=== PATIENT | male | born 1975 | race Two or more races ===

== ENCOUNTER 2020-11-24 21:58 | Inpatient (IN) | payer OTHER ==
[~2020-11-24] VITALS: Ht 177.8 cm; Wt 120.2 kg
--- NOTE | 2020-11-24 23:21 | ED.ADGEN ---
Past Medical History Past Surgical History: No Surgical History General Adult EDM: Chief Complaint: BLOODY STOOL HPI: HPI: Patient is a 45 year old male coming in for blood in his stools for the past 3 to 4 days. Patient states he has had a few episodes in the past over the last 1 to 2 days. Patient states he has some rectal discomfort with bowel movements. Says the blood is streaked on bowel movements. Denies any abdominal pain. Denies any diarrhea. Did not take any blood thinners. No surgical or medical Review of Systems: Review of Systems: All other systems within normal limits except for as noted in the HPI Current Medications: Current Medications Medications (Trade) Dose Ordered Sig/Jennifer Start Time Stop Time Status Last Admin Dose Admin Acetaminophen (Tylenol) 650 mg PRN Q4HRS PRN 11/25/20 00:00 11/25/20 23:59 Fentanyl Citrate (Fentanyl 2ml Vial) 50 mcg PRN Q1HR PRN 11/25/20 00:00 11/25/20 23:59 Hydrocortisone Acetate (Anucort-Hc) 25 mg 1X PRN 11/24/20 23:30 Info (CONTRAST GIVEN -- Rx MONITORING) 1 each PRN DAILY PRN 11/25/20 00:30 11/27/20 00:29 Iohexol (Omnipaque 350 Mg/ml) 100 ml 1X ONCE 11/25/20 00:30 11/25/20 00:31 DC 11/25/20 00:50 100 ML Ondansetron HCl (Zofran) 4 mg PRN Q8HRS PRN 11/25/20 00:00 11/25/20 23:59 Sodium Chloride 1,000 ml @ 100 mls/hr Q10H 11/25/20 00:00 11/25/20 23:59 Allergies: Allergies: Allergies Coded Allergies Type Severity Reaction Last Updated Verified No Known Drug Allergies 11/24/20 No Physical Exam: PE: Constitutional: Well developed, well nourished, no acute distress, non-toxic appearance. [] HENT: Normocephalic, atraumatic, bilateral external ears normal, nose normal. [] Eyes: PERRLA, conjunctiva normal, no discharge. [] Neck: No rigidity, supple, no stridor. [] Cardiovascular: Regular rate and rhythm, brisk cap refill [] Lungs & Thorax: Non labored symmetric respirations, no tachypnea or respiratory distress [] Abdomen: Soft, nondistended. Rectal exam:, Large hemorrhoid with friable area on the left anus. No fissures or active bleeding, hemorrhoid not thrombosed Skin: Warm, dry, no erythema, no rash. [] Back: Unremarkable Extremities: No deformities, range of motion grossly intact, no lower extremity edema [] Neurologic: Alert and oriented X 3, no focal deficits noted. [] Psychologic: Affect normal, judgement normal, mood normal. [] Current Patient Data: Labs: Laboratory Tests Test 11/24/20 23:16 11/24/20 23:37 Stool Occult Blood Positive (NEG) White Blood Count 8.2 x10^3/uL (4.0-11.0) Red Blood Count 3.31 x10^6/uL (4.30-5.70) L Hemoglobin 5.9 g/dL (13.0-17.5) *L Hematocrit 19.6 % (39.0-53.0) *L Mean Corpuscular Volume 59 fL (79-100) L Mean Corpuscular Hemoglobin 18 pg (25-35) L Mean Corpuscular Hemoglobin Concent 30 g/dL (31-37) L Red Cell Distribution Width 17.2 % (11.5-14.5) H Platelet Count 410 x10^3/uL (140-400) H Neutrophils (%) (Auto) 47 % (31-73) Lymphocytes (%) (Auto) 37 % (24-48) Monocytes (%) (Auto) 10 % (0-9) H Eosinophils (%) (Auto) 5 % (0-3) H Basophils (%) (Auto) 2 % (0-3) Neutrophils # (Auto) 3.9 x10^3/uL (1.8-7.7) Lymphocytes # (Auto) 3.0 x10^3/uL (1.0-4.8) Monocytes # (Auto) 0.8 x10^3/uL (0.0-1.1) Eosinophils # (Auto) 0.4 x10^3/uL (0.0-0.7) Basophils # (Auto) 0.1 x10^3/uL (0.0-0.2) Platelet Estimate Pending Sodium Level 141 mmol/L (136-145) Potassium Level 3.8 mmol/L (3.5-5.1) Chloride Level 107 mmol/L (98-107) Carbon Dioxide Level 25 mmol/L (21-32) Anion Gap 9 (6-14) Blood Urea Nitrogen 13 mg/dL (8-26) Creatinine 1.2 mg/dL (0.7-1.3) Estimated GFR (Cockcroft-Gault) 65.2 BUN/Creatinine Ratio 11 (6-20) Glucose Level 88 mg/dL (70-99) Calcium Level 8.4 mg/dL (8.5-10.1) L Total Bilirubin 0.8 mg/dL (0.2-1.0) Aspartate Amino Transferase (AST) 22 U/L (15-37) Alanine Aminotransferase (ALT) 25 U/L (16-63) Alkaline Phosphatase 84 U/L (46-116) Total Protein 7.2 g/dL (6.4-8.2) Albumin 3.4 g/dL (3.4-5.0) Albumin/Globulin Ratio 0.9 (1.0-1.7) L Lipase 180 U/L (73-393) Laboratory Tests 11/24/20 23:37 Laboratory Tests 11/24/20 23:37 Vital Signs: Vital Signs Date Time Temp Pulse Resp B/P (MAP) Pulse Ox O2 Delivery O2 Flow Rate FiO2 11/25/20 01:00 88 19 130/60 (83) 99 Room Air 11/24/20 22:56 98.7 98.7 EKG: EKG: [] Heart Score: C/O Chest Pain: No Risk Factors: Risk Factors: DM, Current or recent (<one month) smoker, HTN, HLP, family history of CAD, obesity. Risk Scores: Score 0 - 3: 2.5% MACE over next 6 weeks - Discharge Home Score 4 - 6: 20.3% MACE over next 6 weeks - Admit for Clinical Observation Score 7 - 10: 72.7% MACE over next 6 weeks - Early Invasive Strategies Radiology/Procedures: Radiology/Procedures: [facility] [address] [place] [address] IMAGING REPORT Signed PATIENT: ROSA AJ OACCOUNT: [id number] : 1975 LOCATION: ER AGE: 45 SEX: M EXAM STATUS: REG ER ORD. PHYSICIAN: MICHAEL MONTES MD REASON: lower GI bleeding, OMNI 350 100 IV PROCEDURE: CT ANGIOGRAPHY ABD AND PELVIS CTA ABDOMEN AND PELVIS WITHOUT IV CONTRAST History: Reason: lower GI bleeding, OMNI 350 100 IV / Spl. Instructions: / History: Technique: CT abdomen pelvis without and with contrast. With contrast arterial and delayed images were obtained.. Coronal and sagittal reconstructions were p erformed. Exposure: One or more of the following individualized dose reduction techniques were utilized for this examination: 1. Automated exposure control 2. Adjustment of the mA and/or kV according to patient size 3. Use of iterative reconstruction technique. Comparison: None Findings: Lower chest: No consolidation or pleural effusion. Abdomen and pelvis: The liver, spleen, adrenal glands, and pancreas are unremarkable. Contracted gallbladder. No biliary ductal dilatation. No renal calculus or hydronephrosis. Normal appearance of the urinary bladder. Colonic diverticulosis. Mild sigmoid colonic wall thickening with mild adjacent inflammatory changes. No evidence of contrast extravasation to suggest active hemorrhage. No pneumoperitoneum. No abscess. Normal appendix. No evidence of bowel obstruction. No pathologic lymphadenopathy. No ascites. Small fat-containing left inguinal hernia. Small fat-containing umbilical hernia. Bones: Grade 2 anterolisthesis L5 on S1 due to bilateral pars defects with advanced degenerative disc changes. Additional thoracolumbar spondylosis. Impression: 1. Colonic diverticulosis with focal sigmoid colonic wall thickening and mild adjacent inflammatory changes, may represent colitis or diverticulitis although malignancy is possible. Recommend follow-up and colonoscopy to further evaluate. Electronically signed by: Yifan Kamara DO (11/25/2020 1:38 AM) [facility] DICTATED and SIGNED BY: YIFAN KAMARA DO DATE: 11/25/20 [id number] [] Course & Med Decision Making: Course & Med Decision Making Pertinent Labs and Imaging studies reviewed. (See chart for details) Fecal occult negative with anemia. Patient consented to transfusion and admitted to hospitalist with GI consult. Vital signs remained stable emergency department. [] Dragon Disclaimer: Dragon Disclaimer: This electronic medical record was generated, in whole or in part, using a voice recognition dictation system. Departure Departure Impression: Primary Impression: Anemia Additional Impression: Lower GI bleeding Disposition: ADMITTED INPATIENT Admitting Physician: KATIE Condition: STABLE Referrals: NO PCP (PCP) Problem Qualifiers MICHAEL MONTES MD Nov 24, 2020 23:21
[2020-11-24] MEDS ORDERED: HYDROCORTISONE ACETATE 25 MG SUPP.RECT PR PRN (23:30)
[2020-11-24 23:46] LABS: BASO # 0.1 x10^3/uL (0.0-0.2); BASO % 2 % (0-3); EOS # 0.4 x10^3/uL (0.0-0.7); EOS % 5 % (0-3); LYMPH % 37 % (24-48); MEAN CORPUSCULAR HEMOGLOBIN 18 pg (25-35); MEAN CORPUSCULAR HGB CONC 30 g/dL (31-37); MEAN CORPUSCULAR VOLUME 59 fL (79-100); MONO # 0.8 x10^3/uL (0.0-1.1); MONO % 10 % (0-9); NEUT # 3.9 x10^3/uL (1.8-7.7); NEUT % 47 % (31-73); PLATELET COUNT 410 x10^3/uL (140-400); RED BLOOD COUNT 3.31 x10^6/uL (4.30-5.70); RED CELL DISTRIBUTION WIDTH 17.2 % (11.5-14.5); WHITE BLOOD COUNT 8.2 x10^3/uL (4.0-11.0)
[2020-11-24 23:50] LABS: HEMATOCRIT 19.6 % (39.0-53.0); HEMOGLOBIN 5.9 g/dL (13.0-17.5)
[2020-11-24 23:52] LABS: CALCIUM 8.4 mg/dL (8.5-10.1); CREATININE 1.2 mg/dL (0.7-1.3); GFR 65.2; POTASSIUM 3.8 mmol/L (3.5-5.1)
[2020-11-24 23:58] LABS: ALBUMIN 3.4 g/dL (3.4-5.0); ALBUMIN/GLOBULIN RATIO 0.9 (1.0-1.7); TOTAL BILIRUBIN 0.8 mg/dL (0.2-1.0); TOTAL PROTEIN 7.2 g/dL (6.4-8.2)
[2020-11-25] VITALS (11 sets, daily range): BP systolic 103–144; BP diastolic 53–76
[2020-11-25] MEDS ORDERED: ACETAMINOPHEN 325 MG TABLET. PO PRN
[2020-11-25] MEDS ORDERED: ONDANSETRON PF 4 MG/2 ML VIAL. IVP PRN
[2020-11-25] MEDS ORDERED: fentaNYL PF VIAL 100 MCG/2 ML VIAL IVP PRN
[2020-11-25] MEDS ORDERED: CONTRAST GIVEN. MC PRN (00:30)
[2020-11-25] MEDS ORDERED: IOHEXOL 350 MG/ML 100 ML VIAL. IV ONE (00:30)
[2020-11-25 01:16] LABS: FECAL OB PT POSITIVE (NEG)
--- NOTE | 2020-11-25 01:40 | RAD ---
CTA ABDOMEN AND PELVIS WITHOUT IV CONTRAST History: Reason: lower GI bleeding, OMNI 350 100 IV / Spl. Instructions: / History: Technique: CT abdomen pelvis without and with contrast. With contrast arterial and delayed images wer e obtained.. Coronal and sagittal reconstructions were performed. Exposure: One or more of the following individualized dose reduction techniques were utilized for thi s examination: 1. Automated exposure control 2. Adjustment of the mA and/or kV according to patient size 3. Use of iterative reconstruction technique. Comparison: None Findings: Lower chest: No consolidation or pleural effusion. Abdomen and pelvis: The liver, spleen, adrenal glands, and pancreas are unremarkable. Contracted gall bladder. No biliary ductal dilatation. No renal calculus or hydronephrosis. Normal appearance of the urinary bladder. Colonic diverticulosis. Mild sigmoid colonic wall thickening with mild adjacent inflammatory changes. No evidence of contrast extravasation to suggest active hemorrhage. No pneumoperitoneum. No abscess. Normal appendix. No evidence of bowel obstruction. No pathologic lymphadenopathy. No ascites. Small f at-containing left inguinal hernia. Small fat-containing umbilical hernia. Bones: Grade 2 anterolisthesis L5 on S1 due to bilateral pars defects with advanced degenerative disc changes. Additional thoracolumbar spondylosis. Impression: 1. Colonic diverticulosis with focal sigmoid colonic wall thickening and mild adjacent inflammatory changes, may represent colitis or diverticulitis although malignancy is possible. Recommend follow-up and colonoscopy to further evaluate. Electronically signed by: Yifan Miles DO (11/25/2020 1:38 AM) [facility]
--- NOTE | 2020-11-25 02:00 | NUR ---
The patient, ROSA AJ, 45 y/o, M admitted by MEGHAN PUENTE MD, was given written information regarding hospital policies, unit procedures and contact persons. Valuables were checked and left with him.
[2020-11-25] MEDS: IV NORMAL SALINE 1000ML BAG 1,000 ML IV SCH ×2 (03:23→10:00)
[2020-11-25 04:29] LABS: PLT ESTIMATE INCREASED (ADEQUATE)
[2020-11-25 04:30] LABS: ANISOCYTOSIS SLIGHT; HYPOCHROMIA MARKED; MICROCYTOSIS MARKED; OVALOCYTES FEW; POLYCHROMASIA SLIGHT; TEAR DROP CELLS OCC
--- NOTE | 2020-11-25 07:28 | PDOC1 ---
History and Physical Date of Admission Date of Admission DATE: 11/25/20 TIME: 07:16 Identification/Chief Complaint Chief Complaint Blood in stool Source Source: Patient History of Present Illness History of Present Illness Mr Weaver is a 45 yo male w/ PMHx hypothyroidism coming in for blood in his stools for the past 3 days prior to arrival. He has had a few episodes in the past 2 days where brisk bright red blood appeared. Patient states he has some rectal discomfort with bowel movements. 2 days ago was pure blood, but over the past 24 hours prior to arrival blood is streaked in bowel movements. Denies any abdomi nal pain. Denies any diarrhea. Did not take any blood thinners. He has been off levothyroxine and has not seen a PCP in years because he felt fine. He came to the ED because of associated dizziness. Was orthostatic in ED. When he was 35 years old has similar symptoms resolved within 2 days and has never had a EGD or colonoscopy. No weight loss. Has had some constipation but does strain to have bowel movements and has been working on changing his diet recently. Up-to-date on COVID-19 vaccines WBC 8.2, Hb 5.9, platelets 410, NA 141, K3.8, BUN 13, CR 1.2, glucose 88, LFTs within normal limits albumin 3.4, occult blood positive. CT abdomen pelvis with diverticulosis with sigmoid wall thickening. 2 units PRBC ordered and admitted for further observation with GI consultation Past Medical History Endocrine: Hypothyroidism Past Surgical History Past Surgical History: No pertinent history Family History Family History: Diabetes, High Cholestrol, Hypertension Social History Smoke: No ALCOHOL: rare Drugs: None Current Problem List Problem List Problems Medical Problems: (1) Anemia Status: Acute (2) Lower GI bleeding Status: Acute Current Medications Current Medications Current Medications Hydrocortisone Acetate (Anucort-Hc) 25 mg 1X PRN AL RECTAL PAIN; Start at 23:30 Ondansetron HCl (Zofran) 4 mg PRN Q8HRS PRN IVP NAUSEA/VOMITING; Start 11/25/20 at 00:00; Stop 11/25/20 at 23:59 Fentanyl Citrate (Fentanyl 2ml Vial) 50 mcg PRN Q1HR PRN IVP PAIN; Start 11/25/20 at 00:00; Stop 11/25/20 at 23:59 Sodium Chloride 1,000 ml @ 100 mls/hr Q10H IV Last administered on 11/25/20at 03:23; Start 11/25/20 at 00:00; Stop 11/25/20 at 23:59 Acetaminophen (Tylenol) 650 mg PRN Q4HRS PRN PO FEVER > 100.3'F; Start 11/25/20 at 00:00; Stop 11/25/20 at 23:59 Iohexol (Omnipaque 350 Mg/ml) 100 ml 1X ONCE IV Last administered on 11/25/20at 00:50; Start 11/25/20 at 00:30; Stop 11/25/20 at 00:31; Status DC Info (CONTRAST GIVEN -- Rx MONITORING) 1 each PRN DAILY PRN MC SEE COMMENTS; Start 11/25/20 at 00:30; Stop 11/27/20 at 00:29 Allergies Allergies: Coded Allergies: No Known Drug Allergies (Unverified , 11/24/20) ROS General: YES: Fatigue, Malaise, Appetite; No: Chills, Night Sweats, Other PSYCHOLOGICAL ROS: No: Anxiety, Behavioral Disorder, Concentration difficultie, Decreased libido, Depression, Disorientation, Hallucinations, Hostility, Irritablity, Memory difficulties, Mood Swings, Obsessive thoughts, Physical abuse, Sexual abuse, Sleep disturbances, Suicidal ideation, Other Eyes: No Blurry vision, No Decreased vision, No Double vision, No Dry eyes, No Excessive tearing, No Eye Pain, No Itchy Eyes, No Loss of vision, No Photophobia, No Scotomata, No Uses contacts, No Uses glasses, No Other HEENT: No: Heacaches, Visual Changes, Hearing change, Nasal congestion, Nasal discharge, Oral lesions, Sinus pain, Sore Throat, Epistaxis, Sneezing, Snoring, Tinnitus, Vertigo, Vocal changes, Other ALLERGY AND IMMUNOLOGY: No: Hives, Insect Bite Sensitivity, Itchy/Watery Eyes, Nasal Congestion, Post Nasal Drip, Seasonal Allergies, Other Hematological and Lymphatic: No: Bleeding Problems, Blood Clots, Blood Transfusions, Brusing, Night Sweats, Pallor, Swollen Lymph Nodes, Other ENDOCRINE: No: Breast Changes, Galactorrhea, Hair Pattern Changes, Hot Flashes, Malaise/lethargy, Mood Swings, Palpitations, Polydipsia/polyuria, Skin Changes, Temperature Intolerance, Unexpected Weight Changes, Other Breast: No New/Changing Breast Lumps, No Nipple changes, No Nipple discharge, No Other Respiratory: No: Cough, Hemoptysis, Orthopnea, Pleuritic Pain, Shortness of breath, SOB with excertion, Sputum Changes, Stridor, Tachypnea, Wheezing, Other Cardiovascular: No Chest Pain, No Palpitations, No Orthopnea, No Paroxysmal Noc . Dyspnea, No Edema, No Lt Headedness, No Other Gastrointestinal: Yes Hematochezia; No Nausea, No Vomiting, No Abdominal Pain, No Diarrhea, No Constipation, No Melena, No Other Genitourinary: No Dysuria, No Frequency, No Incontinence, No Hematuria, No Retention, No Discharge, No Urgency, No Pain, No Flank Pain, No Other, No , No , No , No , No , No , No Musculoskeletal: No Gait Disturbance, No Joint Pain, No Joint Stiffness, No Joint Swelling, No Muscle Pain, No Muscular Weakness, No Pain In:, No Swelling In:, No Other Neurological: No Behavorial Changes, No Bowel/Bladder ControlChng, No Confusion, No Dizziness, No Gait Disturbance, No Headaches, No Impaired Coord/balance, No Memory Loss, No Numbness/Tingling, No Seizures, No Speech Problems, No Tremors, No Visual Changes, No Weakness, No Other Skin: No Dry Skin, No Eczema, No Hair Changes, No Lumps, No Mole Changes, No Mottling, No Nail Changes, No Pruritus, No Rash, No Skin Lesion Changes, No Other, No Acne Physical Exam General: Alert, Oriented X3, Cooperative, No acute distress HEENT: Atraumatic, PERRLA, EOMI, Other (pale oral mucosa) Lungs: Clear to auscultation, Normal air movement Heart: S1S2, RRR, no thrills, no rubs, no gallops, no murmurs Abdomen: Normal bowel sounds, Soft, No tenderness, No hepatosplenomegaly, No masses Male Genitals Exam: normal genitalia, normal prostate Rectal Exam: hemorrhoids (large 1.3 cm hemorrhoid at 7 o'clock) Extremities: No clubbing, No cyanosis, No edema, Normal pulses, No tenderness/swelling Skin: No rashes, No breakdown, No significant lesion Neuro: Normal gait, Normal speech, Strength at 5/5 X4 ext, Normal tone, Sensation intact, Cranial nerves 3-12 NL, Reflexes 2+ Psych/Mental Status: Mental status NL, Mood NL Vitals Vitals Vital Signs Date Time Temp Pulse Resp B/P (MAP) Pulse Ox O2 Delivery O2 Flow Rate FiO2 11/25/20 06:27 97.8 67 16 114/57 97.8 11/25/20 02:00 Room Air 11/25/20 02:00 98 Labs Labs Laboratory Tests Test 11/24/20 23:16 11/24/20 23:37 Stool Occult Blood Positive (NEG) White Blood Count 8.2 x10^3/uL (4.0-11.0) Red Blood Count 3.31 x10^6/uL (4.30-5.70) Hemoglobin 5.9 g/dL (13.0-17.5) Hematocrit 19.6 % (39.0-53.0) Mean Corpuscular Volume 59 fL (79-100) Mean Corpuscular Hemoglobin 18 pg (25-35) Mean Corpuscular Hemoglobin Concent 30 g/dL (31-37) Red Cell Distribution Width 17.2 % (11.5-14.5) Platelet Count 410 x10^3/uL (140-400) Neutrophils (%) (Auto) 47 % (31-73) Lymphocytes (%) (Auto) 37 % (24-48) Monocytes (%) (Auto) 10 % (0-9) Eosinophils (%) (Auto) 5 % (0-3) Basophils (%) (Auto) 2 % (0-3) Neutrophils # (Auto) 3.9 x10^3/uL (1.8-7.7) Lymphocytes # (Auto) 3.0 x10^3/uL (1.0-4.8) Monocytes # (Auto) 0.8 x10^3/uL (0.0-1.1) Eosinophils # (Auto) 0.4 x10^3/uL (0.0-0.7) Basophils # (Auto) 0.1 x10^3/uL (0.0-0.2) Platelet Estimate Increased (ADEQUATE) Polychromasia Slight Hypochromasia Marked Anisocytosis Slight Microcytosis Marked Tear Drop Cells Occ Ovalocytes Few Sodium Level 141 mmol/L (136-145) Potassium Level 3.8 mmol/L (3.5-5.1) Chloride Level 107 mmol/L (98-107) Carbon Dioxide Level 25 mmol/L (21-32) Anion Gap 9 (6-14) Blood Urea Nitrogen 13 mg/dL (8-26) Creatinine 1.2 mg/dL (0.7-1.3) Estimated GFR (Cockcroft-Gault) 65.2 BUN/Creatinine Ratio 11 (6-20) Glucose Level 88 mg/dL (70-99) Calcium Level 8.4 mg/dL (8.5-10.1) Total Bilirubin 0.8 mg/dL (0.2-1.0) Aspartate Amino Transf (AST/SGOT) 22 U/L (15-37) Alanine Aminotransferase (ALT/SGPT) 25 U/L (16-63) Alkaline Phosphatase 84 U/L (46-116) Total Protein 7.2 g/dL (6.4-8.2) Albumin 3.4 g/dL (3.4-5.0) Albumin/Globulin Ratio 0.9 (1.0-1.7) Lipase 180 U/L (73-393) Laboratory Tests Test 11/24/20 23:16 11/24/20 23:37 Stool Occult Blood Positive (NEG) White Blood Count 8.2 x10^3/uL (4.0-11.0) Red Blood Count 3.31 x10^6/uL (4.30-5.70) Hemoglobin 5.9 g/dL (13.0-17.5) Hematocrit 19.6 % (39.0-53.0) Mean Corpuscular Volume 59 fL (79-100) Mean Corpuscular Hemoglobin 18 pg (25-35) Mean Corpuscular Hemoglobin Concent 30 g/dL (31-37) Red Cell Distribution Width 17.2 % (11.5-14.5) Platelet Count 410 x10^3/uL (140-400) Neutrophils (%) (Auto) 47 % (31-73) Lymphocytes (%) (Auto) 37 % (24-48) Monocytes (%) (Auto) 10 % (0-9) Eosinophils (%) (Auto) 5 % (0-3) Basophils (%) (Auto) 2 % (0-3) Neutrophils # (Auto) 3.9 x10^3/uL (1.8-7.7) Lymphocytes # (Auto) 3.0 x10^3/uL (1.0-4.8) Monocytes # (Auto) 0.8 x10^3/uL (0.0-1.1) Eosinophils # (Auto) 0.4 x10^3/uL (0.0-0.7) Basophils # (Auto) 0.1 x10^3/uL (0.0-0.2) Platelet Estimate Increased (ADEQUATE) Polychromasia Slight Hypochromasia Marked Anisocytosis Slight Microcytosis Marked Tear Drop Cells Occ Ovalocytes Few Sodium Level 141 mmol/L (136-145) Potassium Level 3.8 mmol/L (3.5-5.1) Chloride Level 107 mmol/L (98-107) Carbon Dioxide Level 25 mmol/L (21-32) Anion Gap 9 (6-14) Blood Urea Nitrogen 13 mg/dL (8-26) Creatinine 1.2 mg/dL (0.7-1.3) Estimated GFR (Cockcroft-Gault) 65.2 BUN/Creatinine Ratio 11 (6-20) Glucose Level 88 mg/dL (70-99) Calcium Level 8.4 mg/dL (8.5-10.1) Total Bilirubin 0.8 mg/dL (0.2-1.0) Aspartate Amino Transf (AST/SGOT) 22 U/L (15-37) Alanine Aminotransferase (ALT/SGPT) 25 U/L (16-63) Alkaline Phosphatase 84 U/L (46-116) Total Protein 7.2 g/dL (6.4-8.2) Albumin 3.4 g/dL (3.4-5.0) Albumin/Globulin Ratio 0.9 (1.0-1.7) Lipase 180 U/L (73-393) Images Images CT Lower chest: No consolidation or pleural effusion. Abdomen and pelvis: The liver, spleen, adrenal glands, and pancreas are unremarkable. Contracted gallbladder. No biliary ductal dilatation. No renal calculus or hydronephrosis. Normal appearance of the urinary bladder. Colonic diverticulosis. Mild sigmoid colonic wall thickening with mild adjacent inflammatory changes. No evidence of contrast extravasation to suggest active hemorrhage. No pneumoperitoneum. No abscess. Normal appendix. No evidence of bowel obstruction. No pathologic lymphadenopat hy. No ascites. Small fat-containing left inguinal hernia. Small fat-containing umbilical hernia. Bones: Grade 2 anterolisthesis L5 on S1 due to bilateral pars defects with advanced degenerative disc changes. Additional thoracolumbar spondylosis. Impression: 1. Colonic diverticulosis with focal sigmoid colonic wall thickening and mild adjacent inflammatory changes, may represent colitis or diverticulitis although malignancy is possible. Recommend follow-up and colonoscopy to further evaluate. VTE Prophylaxis Ordered VTE Prophylaxis Devices: Yes VTE Pharmacological Prophylaxi: Contraindicated Assessment/Plan Assessment/Plan A/P: Acute blood loss anemia - 2u PRBC ordered, will f/u repeat H&H, monitor for further bleeding. Likely self-limiting diverticular bleed. GI consulted. empiric PPI Hematochezia - due to diverticular bleed. Observe on ice chips for now, consider advancing diet later if no recurrent bleeding. Hemorrhoids - no active bleeding from hemorrhoid, will use topical anusol Diverticulosis - fiber advised Occasional constipation H/o hypothyroidism - off meds. will restart 25mcg levothyroxine and repeat TSH in 12 weeks FEN - NPO PPX - SCDs, ppi FULL CODE Dispo - Observation Justifications for Admission Other Justification TOMI RODRIGUEZ MD Nov 25, 2020 07:28
[2020-11-25] MEDS ORDERED: HYDROCORTISONE ACETATE 25 MG SUPP.RECT PR PRN (07:30)
[2020-11-25 08:19] LABS: BASO # 0.1 x10^3/uL (0.0-0.2); BASO % 2 % (0-3); EOS # 0.3 x10^3/uL (0.0-0.7); EOS % 5 % (0-3); HEMATOCRIT 24.8 % (39.0-53.0); LYMPH # 2.3 x10^3/uL (1.0-4.8); LYMPH % 34 % (24-48); MEAN CORPUSCULAR HEMOGLOBIN 21 pg (25-35); MEAN CORPUSCULAR HGB CONC 32 g/dL (31-37); MEAN CORPUSCULAR VOLUME 65 fL (79-100); MONO # 0.6 x10^3/uL (0.0-1.1); MONO % 10 % (0-9); NEUT # 3.2 x10^3/uL (1.8-7.7); NEUT % 50 % (31-73); PLATELET COUNT 359 x10^3/uL (140-400); RED BLOOD COUNT 3.85 x10^6/uL (4.30-5.70); RED CELL DISTRIBUTION WIDTH 23.6 % (11.5-14.5); WHITE BLOOD COUNT 6.5 x10^3/uL (4.0-11.0)
--- NOTE | 2020-11-25 09:16 | PDOC2 ---
GI CONSULT Date of Service: DATE: 11/25/20 TIME: 09:16 Reason For Consult: lower GI bleed HPI: HPI: 45 y/o male admitted through ER. 3-4 days of red blood w/ brown stool, increasing amount. Yesterday associated w/ some dizziness. Last occurred last night. Similar symptoms (less severe) about 10 years ago - resolved spontaneously. No reflux/heartburn, dysphagia, n/v, abd pain, diarrhea, hematochezia, change in appetite, or weight loss. H/o occasional constipation - "hard to go." No previous EGD or colonoscopy. Imaging as below notes diverticulosis. No GB, liver, pancreas, or PUD history. No NSAIDs. H/o hypothyroidism previously on levothyroxine which he has not taken for a couple years because he felt fine and his doctor said his levels were normal. No h/o anemia. Says the ER told him he had a big hemorrhoid. Denies rectal pain. Had COVID vaccines. PMH: PMH: hypothyroidism FH: Family History: No pertinent hx (denies GI cancers), DM Social History: Smoke: No ALCOHOL: occassional Drugs: None (says he's around people at work who do drugs) ROS: GEN: Denies fevers, chills, sweats HEENT: Denies blurred vision, sore throat CV: Denies chest pain RESP: Denies shortness of air, cough GI: Per HPI : Denies hematuria, dysuria ENDO: Denies weight changes NEURO: +dizziness MSK: Denies weakness, joint pain/swelling SKIN: Denies jaundice, pruritus Vitals: Vitals: Vital Signs Date Time Temp Pulse Resp B/P (MAP) Pulse Ox O2 Delivery O2 Flow Rate FiO2 11/25/20 07:00 98.0 67 16 111/65 (80) 97 Room Air 98.0 Labs: Labs: Laboratory Tests Test 11/24/20 23:16 11/24/20 23:37 11/25/20 07:45 Stool Occult Blood Positive (NEG) White Blood Count 8.2 x10^3/uL (4.0-11.0) 6.5 x10^3/uL (4.0-11.0) Red Blood Count 3.31 x10^6/uL (4.30-5.70) 3.85 x10^6/uL (4.30-5.70) Hemoglobin 5.9 g/dL (13.0-17.5) 8.0 g/dL (13.0-17.5) Hematocrit 19.6 % (39.0-53.0) 24.8 % (39.0-53.0) Mean Corpuscular Volume 59 fL (79-100) 65 fL (79-100) Mean Corpuscular Hemoglobin 18 pg (25-35) 21 pg (25-35) Mean Corpuscular Hemoglobin Concent 30 g/dL (31-37) 32 g/dL (31-37) Red Cell Distribution Width 17.2 % (11.5-14.5) 23.6 % (11.5-14.5) Platelet Count 410 x10^3/uL (140-400) 359 x10^3/uL (140-400) Neutrophils (%) (Auto) 47 % (31-73) 50 % (31-73) Lymphocytes (%) (Auto) 37 % (24-48) 34 % (24-48) Monocytes (%) (Auto) 10 % (0-9) 10 % (0-9) Eosinophils (%) (Auto) 5 % (0-3) 5 % (0-3) Basophils (%) (Auto) 2 % (0-3) 2 % (0-3) Neutrophils # (Auto) 3.9 x10^3/uL (1.8-7.7) 3.2 x10^3/uL (1.8-7.7) Lymphocytes # (Auto) 3.0 x10^3/uL (1.0-4.8) 2.3 x10^3/uL (1.0-4.8) Monocytes # (Auto) 0.8 x10^3/uL (0.0-1.1) 0.6 x10^3/uL (0.0-1.1) Eosinophils # (Auto) 0.4 x10^3/uL (0.0-0.7) 0.3 x10^3/uL (0.0-0.7) Basophils # (Auto) 0.1 x10^3/uL (0.0-0.2) 0.1 x10^3/uL (0.0-0.2) Platelet Estimate Increased (ADEQUATE) Polychromasia Slight Hypochromasia Marked Anisocytosis Slight Microcytosis Marked Tear Drop Cells Occ Ovalocytes Few Sodium Level 141 mmol/L (136-145) Potassium Level 3.8 mmol/L (3.5-5.1) Chloride Level 107 mmol/L (98-107) Carbon Dioxide Level 25 mmol/L (21-32) Anion Gap 9 (6-14) Blood Urea Nitrogen 13 mg/dL (8-26) Creatinine 1.2 mg/dL (0.7-1.3) Estimated GFR (Cockcroft-Gault) 65.2 BUN/Creatinine Ratio 11 (6-20) Glucose Level 88 mg/dL (70-99) Calcium Level 8.4 mg/dL (8.5-10.1) Total Bilirubin 0.8 mg/dL (0.2-1.0) Aspartate Amino Transf (AST/SGOT) 22 U/L (15-37) Alanine Aminotransferase (ALT/SGPT) 25 U/L (16-63) Alkaline Phosphatase 84 U/L (46-116) Total Protein 7.2 g/dL (6.4-8.2) Albumin 3.4 g/dL (3.4-5.0) Albumin/Globulin Ratio 0.9 (1.0-1.7) Lipase 180 U/L (73-393) Allergies: Coded Allergies: No Known Drug Allergies (Unverified , 11/24/20) Medications: Current Medications Medications (Trade) Dose Ordered Sig/Jennifer Route PRN Reason Start Time Stop Time Status Last Admin Dose Admin Sodium Chloride 1,000 ml @ 100 mls/hr Q10H IV 11/25/20 00:00 11/25/20 23:59 11/25/20 03:23 Iohexol (Omnipaque 350 Mg/ml) 100 ml 1X ONCE IV 11/25/20 00:30 11/25/20 00:31 DC 11/25/20 00:50 Imaging: Imaging: CTA A/P 11/24 Findings: Lower chest: No consolidation or pleural effusion. Abdomen and pelvis: The liver, spleen, adrenal glands, and pancreas are unremarkable. Contracted gallbladder. No biliary ductal dilatation. No renal calculus or hydronephrosis. Normal appearance of the urinary bladder. Colonic diverticulosis. Mild sigmoid colonic wall thickening with mild adjacent inflammatory changes. No evidence of contrast extravasation to suggest active hemorrhage. No pneumoperitoneum. No abscess. Normal appendix. No evidence of bowel obstruction. No pathologic lymphadenopathy. No ascites. Small fat-containing left inguinal hernia. Small fat-containing umbilical hernia. Bones: Grade 2 anterolisthesis L5 on S1 due to bilateral pars defects with advanced degenerative disc changes. Additional thoracolumbar spondylosis. Impression: 1. Colonic diverticulosis with focal sigmoid colonic wall thickening and mild adjacent inflammatory changes, may represent colitis or diverticulitis although malignancy is possible. Recommend follow-up and colonoscopy to further evaluate. PE: GEN: NAD HEENT: Atraumatic, PERRL LUNGS: CTAB HEART: RRR ABD: NABS, S/ND/NT EXTREMITY: No edema SKIN: tattoos NEURO/PSYCH: A & O 3 A/P: A/P: Hematochezia Microcytic anemia Abnormal CTA - colonic diverticulosis with focal sigmoid colonic wall thickening and mild adjacent inflammatory changes CRC screen - average risk Diverticulosis Occasional constipation H/o hypothyroidism - off meds -- Observe on ice chips for now, consider advancing diet later if no recurrent bleeding. Monitor Hgb. Will check anemia parameters (though has already transfused). Empiric acid-aluminum pool installer. Needs EGD and colonoscopy - can likely pursue as outpt. ALEXANDER HANNON Nov 25, 2020 09:16
[2020-11-25] MEDS ORDERED: POLYETHYLENE GLYCOL 3350 17 GM PACKET. PO PRN (09:45)
[2020-11-25] MEDS ORDERED: PANTOPRAZOLE 40 MG TABLET.DR. PO SCH (09:45)
[2020-11-25] MEDS ORDERED: PSYL0.4C2 PO (13:47)
[2020-11-25] MEDS ORDERED: LEVO25TA4 PO (13:47)
[2020-11-25] MEDS ORDERED: HYDR30CR61 TP (13:47)
[2020-11-25] MEDS ORDERED: PANT40TA77 PO (13:47)
[2020-11-25] MEDS ORDERED: LEVOTHYROXINE 25 MCG TABLET. PO SCH (14:00)
[2020-11-25] MEDS ORDERED: FERR325T14 PO (14:00)
--- NOTE | 2020-11-25 14:06 | PDOC3 ---
Discharge Summary Visit Information Date of Admission: Nov 25, 2020 Date of Discharge: Nov 25, 2020 Admitting Diagnosis: Acute anemia Final Diagnosis Problems Medical Problems: (1) Anemia Status: Acute (2) Lower GI bleeding Status: Acute Brief Hospital Course Allergies Allergies Coded Allergies Type Severity Reaction Last Updated Verified No Known Drug Allergies 11/24/20 No Vital Signs Vital Signs Date Time Temp Pulse Resp B/P (MAP) Pulse Ox O2 Delivery O2 Flow Rate FiO2 11/25/20 08:11 Room Air 11/25/20 07:00 98.0 67 16 111/65 (80) 97 98.0 Lab Results Laboratory Tests Test 11/24/20 23:16 11/24/20 23:37 11/25/20 07:45 Stool Occult Blood Positive (NEG) White Blood Count 8.2 x10^3/uL (4.0-11.0) 6.5 x10^3/uL (4.0-11.0) Red Blood Count 3.31 x10^6/uL (4.30-5.70) 3.85 x10^6/uL (4.30-5.70) Hemoglobin 5.9 g/dL (13.0-17.5) 8.0 g/dL (13.0-17.5) Hematocrit 19.6 % (39.0-53.0) 24.8 % (39.0-53.0) Mean Corpuscular Volume 59 fL (79-100) 65 fL (79-100) Mean Corpuscular Hemoglobin 18 pg (25-35) 21 pg (25-35) Mean Corpuscular Hemoglobin Concent 30 g/dL (31-37) 32 g/dL (31-37) Red Cell Distribution Width 17.2 % (11.5-14.5) 23.6 % (11.5-14.5) Platelet Count 410 x10^3/uL (140-400) 359 x10^3/uL (140-400) Neutrophils (%) (Auto) 47 % (31-73) 50 % (31-73) Lymphocytes (%) (Auto) 37 % (24-48) 34 % (24-48) Monocytes (%) (Auto) 10 % (0-9) 10 % (0-9) Eosinophils (%) (Auto) 5 % (0-3) 5 % (0-3) Basophils (%) (Auto) 2 % (0-3) 2 % (0-3) Neutrophils # (Auto) 3.9 x10^3/uL (1.8-7.7) 3.2 x10^3/uL (1.8-7.7) Lymphocytes # (Auto) 3.0 x10^3/uL (1.0-4.8) 2.3 x10^3/uL (1.0-4.8) Monocytes # (Auto) 0.8 x10^3/uL (0.0-1.1) 0.6 x10^3/uL (0.0-1.1) Eosinophils # (Auto) 0.4 x10^3/uL (0.0-0.7) 0.3 x10^3/uL (0.0-0.7) Basophils # (Auto) 0.1 x10^3/uL (0.0-0.2) 0.1 x10^3/uL (0.0-0.2) Platelet Estimate Increased (ADEQUATE) Polychromasia Slight Hypochromasia Marked Anisocytosis Slight Microcytosis Marked Tear Drop Cells Occ Ovalocytes Few Sodium Level 141 mmol/L (136-145) Potassium Level 3.8 mmol/L (3.5-5.1) Chloride Level 107 mmol/L (98-107) Carbon Dioxide Level 25 mmol/L (21-32) Anion Gap 9 (6-14) Blood Urea Nitrogen 13 mg/dL (8-26) Creatinine 1.2 mg/dL (0.7-1.3) Estimated GFR (Cockcroft-Gault) 65.2 BUN/Creatinine Ratio 11 (6-20) Glucose Level 88 mg/dL (70-99) Calcium Level 8.4 mg/dL (8.5-10.1) Total Bilirubin 0.8 mg/dL (0.2-1.0) Aspartate Amino Transf (AST/SGOT) 22 U/L (15-37) Alanine Aminotransferase (ALT/SGPT) 25 U/L (16-63) Alkaline Phosphatase 84 U/L (46-116) Total Protein 7.2 g/dL (6.4-8.2) Albumin 3.4 g/dL (3.4-5.0) Albumin/Globulin Ratio 0.9 (1.0-1.7) Lipase 180 U/L (73-393) Iron Level 12 ug/dL (65-175) Total Iron Binding Capacity 426 ug/dL (250-450) Iron Saturation 3 % (15-34) Vitamin B12 Level 559 pg/mL (247-911) Thyroid Stimulating Hormone (TSH) 11.341 uIU/mL (0.358-3.74) Laboratory Tests Test 11/24/20 23:16 11/24/20 23:37 11/25/20 07:45 Stool Occult Blood Positive (NEG) White Blood Count 8.2 x10^3/uL (4.0-11.0) 6.5 x10^3/uL (4.0-11.0) Red Blood Count 3.31 x10^6/uL (4.30-5.70) 3.85 x10^6/uL (4.30-5.70) Hemoglobin 5.9 g/dL (13.0-17.5) 8.0 g/dL (13.0-17.5) Hematocrit 19.6 % (39.0-53.0) 24.8 % (39.0-53.0) Mean Corpuscular Volume 59 fL (79-100) 65 fL (79-100) Mean Corpuscular Hemoglobin 18 pg (25-35) 21 pg (25-35) Mean Corpuscular Hemoglobin Concent 30 g/dL (31-37) 32 g/dL (31-37) Red Cell Distribution Width 17.2 % (11.5-14.5) 23.6 % (11.5-14.5) Platelet Count 410 x10^3/uL (140-400) 359 x10^3/uL (140-400) Neutrophils (%) (Auto) 47 % (31-73) 50 % (31-73) Lymphocytes (%) (Auto) 37 % (24-48) 34 % (24-48) Monocytes (%) (Auto) 10 % (0-9) 10 % (0-9) Eosinophils (%) (Auto) 5 % (0-3) 5 % (0-3) Basophils (%) (Auto) 2 % (0-3) 2 % (0-3) Neutrophils # (Auto) 3.9 x10^3/uL (1.8-7.7) 3.2 x10^3/uL (1.8-7.7) Lymphocytes # (Auto) 3.0 x10^3/uL (1.0-4.8) 2.3 x10^3/uL (1.0-4.8) Monocytes # (Auto) 0.8 x10^3/uL (0.0-1.1) 0.6 x10^3/uL (0.0-1.1) Eosinophils # (Auto) 0.4 x10^3/uL (0.0-0.7) 0.3 x10^3/uL (0.0-0.7) Basophils # (Auto) 0.1 x10^3/uL (0.0-0.2) 0.1 x10^3/uL (0.0-0.2) Platelet Estimate Increased (ADEQUATE) Polychromasia Slight Hypochromasia Marked Anisocytosis Slight Microcytosis Marked Tear Drop Cells Occ Ovalocytes Few Sodium Level 141 mmol/L (136-145) Potassium Level 3.8 mmol/L (3.5-5.1) Chloride Level 107 mmol/L (98-107) Carbon Dioxide Level 25 mmol/L (21-32) Anion Gap 9 (6-14) Blood Urea Nitrogen 13 mg/dL (8-26) Creatinine 1.2 mg/dL (0.7-1.3) Estimated GFR (Cockcroft-Gault) 65.2 BUN/Creatinine Ratio 11 (6-20) Glucose Level 88 mg/dL (70-99) Calcium Level 8.4 mg/dL (8.5-10.1) Total Bilirubin 0.8 mg/dL (0.2-1.0) Aspartate Amino Transf (AST/SGOT) 22 U/L (15-37) Alanine Aminotransferase (ALT/SGPT) 25 U/L (16-63) Alkaline Phosphatase 84 U/L (46-116) Total Protein 7.2 g/dL (6.4-8.2) Albumin 3.4 g/dL (3.4-5.0) Albumin/Globulin Ratio 0.9 (1.0-1.7) Lipase 180 U/L (73-393) Iron Level 12 ug/dL (65-175) Total Iron Binding Capacity 426 ug/dL (250-450) Iron Saturation 3 % (15-34) Vitamin B12 Level 559 pg/mL (247-911) Thyroid Stimulating Hormone (TSH) 11.341 uIU/mL (0.358-3.74) Brief Hospital Course Mr Weaver is a 45 yo male w/ PMHx hypothyroidism coming in for blood in his stools for the past 3 days prior to arrival. He has had a few episodes in the past 2 days where brisk bright red blood appeared. Patient states he has some rectal discomfort with bowel movements. 2 days ago was pure blood, but over the past 24 hours prior to arrival blood is streaked in bowel movements. Denies any abdominal pain. Denies any diarrhea. Did not take any blood thinners. He has been off levothyroxine and has not seen a PCP in years because he felt fine. He came to the ED because of associated dizziness. Was orthostatic in ED. When he was 35 years old has similar symptoms resolved within 2 days and has never had a EGD or colonoscopy. No weight loss. Has had some constipation but does strain to have bowel movements and has been working on changing his diet recently. Up-to-date on COVID-19 vaccines WBC 8.2, Hb 5.9, platelets 410, NA 141, K3.8, BUN 13, CR 1.2, glucose 88, LFTs within normal limits albumin 3.4, occult blood positive. CT abdomen pelvis with diverticulosis with sigmoid wall thickening. 2 units PRBC ordered and admitted for further observation with GI consultation On repeat examination at 1400 feeling much better tolerated ice chips some liquids well formed stool with no blood in it. Rectal pain improved with Anusol. Clearly no bleeding from hemorrhoid. General: Alert, Oriented X3, Cooperative, No acute distress HEENT: Atraumatic, PERRLA, EOMI, Other (pale oral mucosa) Lungs: Clear to auscultation, Normal air movement Heart: S1S2, RRR, no thrills, no rubs, no gallops, no murmurs Abdomen: Normal bowel sounds, Soft, No tenderness, No hepatosplenomegaly, No masses Male Genitals Exam: normal genitalia, normal prostate Rectal Exam: hemorrhoids (large 1.3 cm hemorrhoid at 7 o'clock) Extremities: No clubbing, No cyanosis, No edema, Normal pulses, No tenderness/swelling Skin: No rashes, No breakdown, No significant lesion Neuro: Normal gait, Normal speech, Strength at 5/5 X4 ext, Normal tone, Sensation intact, Cranial nerves 3-12 NL, Reflexes 2+ Psych/Mental Status: Mental status NL, Mood NL TSH returned 11.341, iron 12, TIBC 426, Hb improved 2:08 units of blood had a normal formed bowel movement with no blood seen by GI in consultation and recommended outpatient scopes given referral for new primary care as well as referral for gastroenterology for outpatient colonoscopy and EGD and general horowitz rgery if his hemorrhoids worsen. Rectal bleed-with iron deficiency. IBD, ischemic colitis, diverticular source, colon cancer,and/or hemorrhoids in differential. Consults: GI Problem list: Acute blood loss anemia - 2u PRBC improved Hb 5.9-->8. Likely self-limiting diverticular bleed. GI consulted. empiric PPI 30 days Hematochezia - due to diverticular bleed. No recurrent bleeding. Hemorrhoids - no active bleeding from hemorrhoid, will use topical anusol Diverticulosis - fiber advised Occasional constipation H/o hypothyroidism - off meds. will restart 25mcg levothyroxine and repeat TSH in 12 weeks Greater than 175 minutes spent on same day admit and d/c home with self care and outpatient referrals as above Discharge Information Condition at Discharge: Improved Follow Up: Weeks (1) Disposition/Orders: D/C to Home Scheduled Ferrous Sulfate (Ferrous Sulfate) 325 Mg Tablet, 1 TAB PO BID for SONIA for 3 D ays, #6 Ref 2 Prescribed by: TOMI RODRIGUEZ MD on 11/25/20 1400 Hydrocortisone (Anusol-Hc) 30 Gm Cream..g., 1 RIKI TP BID for Hemorrhoid for 12 Days, #30 Ref 0 Prescribed by: TOMI RODRIGUEZ MD on 11/25/20 1347 Levothyroxine Sodium (Levothyroxine Sodium) 25 Mcg Tablet, 25 MCG PO DAILY06 for Hypothyroidism for 30 Days, #30 Ref 2 Prescribed by: TOMI RODRIGUEZ MD on 11/25/20 1347 Pantoprazole Sodium (Pantoprazole Sodium ) 40 Mg Tablet.dr, 40 MG PO DAILYAC for GI Bleed for 30 Days, #30 Prescribed by: TOMI RODRIGUEZ MD on 11/25/20 1347 Psyllium Husk (Metamucil) 0.4 Gm Capsule, 0.4 GM PO QHS for Fiber supplement for 30 Days, #30 Ref 11 Prescribed by: TOMI RODRIGUEZ MD on 11/25/20 1347 Justicifation of Admission Dx: Justifications for Admission: Justification of Admission Dx: Yes TOMI RODRIGUEZ MD Nov 25, 2020 14:06
--- NOTE | 2020-11-25 16:30 | NUR ---
SS following for discharge planning. SS reviewed pt chart and discussed with pt RN. Pt is from home with spouse and is currently on room air. Discharge order on the chart for home with self care.
--- NOTE | 2020-11-25 18:41 | NUR ---
pt was discharged home with self care after dinner this evening, if he was able to eat dinner with no signs/symptoms. he was great after dinner. he was walked out to the ED exit to his vehicle to drive himself home. Raz Javier RN
== END 2020-11-25 18:47 | disposition home or self-care (01) | DRG 378 ==
LOC: ER 21:58 → 5 SOUTH 11-25 01:00
PROVIDERS: ADMIT Family Medicine; ATTEND Family Medicine
PROC: 30233N1 Transfusion of Nonautologous Red Blood Cells into Peripheral Vein, Percutaneous Approach (ICD-10-PCS; principal; 2020-11-25)
DX: K57.31 Diverticulosis of large intestine without perforation or abscess with bleeding (principal); D62 Acute posthemorrhagic anemia; E03.9 Hypothyroidism, unspecified; K59.00 Constipation, unspecified; K64.9 Unspecified hemorrhoids; Z82.49 Family history of ischemic heart disease and other diseases of the circulatory system; Z83.3 Family history of diabetes mellitus; D50.9 Iron deficiency anemia, unspecified
CPT/HCPCS: 36415; 36430; 74174; 80053; 82274; 82607; 83540; 83550; 83690; 84443; 85025; 86850; 86900; 86901; 86920; 96360; J7030; P9016; Q9967; 99285-25; G0378